=== PATIENT | female | born 1995 | race African-American/Black ===

== ENCOUNTER 2020-11-15 10:28 | Emergency (ER) | payer MEDICAID ==
[~2020-11-15] VITALS: Ht 175.3 cm; Wt 122.7 kg
[2020-11-15 10:34] VITALS: BP 153/89; TEMP 98.5
[2020-11-15 11:02] LABS: BASO % 0.3 % (0.0-2.0); EOS # 0.4 (0.0-0.7); EOS % 3.8 % (0-4.0); GRAN # 6.2 (1.4-6.5); GRAN % 66.9 % (42.2-75.2); HEMATOCRIT 40.9 % (37.0-47.0); HEMOGLOBIN 12.9 g/dl (12.5-16.0); LYMPH # 2.1 (1.2-3.4); LYMPH % 22.5 % (20.0-51.0); MEAN CELL VOLUME 84 fl (80.0-100.0); MEAN CORPUSCULAR HEMOGLOBIN 26 pg (27.0-31.0); MEAN CORPUSCULAR HGB CONC 32 g/dl (33.0-37.0); MEAN PLATELET VOLUME 11.7 fl (7.4-10.4); MONO # 0.6 (0.1-0.6); MONO % 6.2 % (1.7-9.3); PLATELET COUNT 332 K/mm3 (130-400); RED BLOOD COUNT 4.88 M/mm3 (4.10-5.30); REDCELL DISTRIBUTION WIDTH-CV 12.7 % (11.5-14.5)
[2020-11-15 11:13] LABS: ALBUMIN 4.3 gm/dL (3.5-5.0); BILIRUBIN,TOTAL 1.4 mg/dL (0.0-1.0); C-REACTIVE PROTEIN 1.1 mg/dL (0.0-0.9); CALCIUM 9.3 mg/dL (8.4-10.2); CREATININE, serum 0.6 (0.52-1.25); POTASSIUM 4.2 mmol/L (3.4-5.0)
[2020-11-15] MEDS ORDERED: BACTRIM DS 8001 TAB PO (11:44)
[2020-11-15 11:51] VITALS: PULSE 92
== END 2020-11-15 11:52 | disposition home or self-care (01) ==
LOC: COL.ER 10:28
PROVIDERS: Nurse Practitioner
DX: L03.012 Cellulitis of left finger (principal)
CPT/HCPCS: J0690

== ENCOUNTER 2020-11-17 17:52 | Emergency (ER) | payer MEDICAID ==
[~2020-11-17] VITALS: Ht 175.3 cm; Wt 122.7 kg
[~2020-11-17 17:52] MED LIST: BACTRIM DS 8001 TAB PO
[2020-11-17 19:29] VITALS: BP 137/81; PULSE 89; TEMP 98
== END 2020-11-17 19:32 | disposition home or self-care (01) ==
LOC: COL.ER 17:52
DX: L03.012 Cellulitis of left finger (principal)

== ENCOUNTER 2020-12-20 13:09 | Emergency (ER) | payer MEDICAID ==
[~2020-12-20] VITALS: Ht 175.3 cm; Wt 122.7 kg
[2020-12-20 13:41] VITALS: TEMP 98.1
[2020-12-20] MEDS ORDERED: AMOXICILLIN 50500 MG PO (13:59)
[2020-12-20] MEDS ORDERED: CIPRODEX OT (13:59)
[2020-12-20 14:15] VITALS: BP 116/64; PULSE 88
== END 2020-12-20 14:15 | disposition home or self-care (01) ==
LOC: COL.ER 13:09
DX: H60.92 Unspecified otitis externa, left ear (principal)

== ENCOUNTER 2021-02-07 14:24 | Emergency (ER) | payer MEDICAID ==
[~2021-02-07] VITALS: Ht 175.3 cm; Wt 77.3 kg
[~2021-02-07 14:24] MED LIST changes: +AMOXICILLIN 50500 MG PO; +CIPRODEX OT
[2021-02-07 14:35] VITALS: BP 137/79; TEMP 99.7
[2021-02-07 15:09] VITALS: PULSE 81
== END 2021-02-07 15:10 | disposition home or self-care (01) ==
LOC: COL.ER 14:24
DX: H60.92 Unspecified otitis externa, left ear (principal); R59.0 Localized enlarged lymph nodes

== ENCOUNTER 2021-04-06 20:02 | Emergency (ER) | payer MEDICAID ==
[~2021-04-06] VITALS: Ht 175.3 cm; Wt 122.7 kg
[2021-04-06 20:49] VITALS: TEMP 99.2
[2021-04-06 22:04] LABS: CALCIUM 9.1 mg/dL (8.4-10.2); CREATININE, serum 0.78 mg/dL (0.57-1.11); POTASSIUM 4.7 mmol/L (3.5-4.5)
[2021-04-06 22:06] LABS: STREP SCREEN NEGATIVE
[2021-04-07 00:53] VITALS: BP 142/70; PULSE 72
== END 2021-04-07 00:53 | disposition home or self-care (01) ==
LOC: COL.ER 20:02
PROVIDERS: Emergency Medicine
DX: J02.9 Acute pharyngitis, unspecified (principal); Z20.822 Contact with and (suspected) exposure to COVID-19
CPT/HCPCS: J8540